=== PATIENT | male | born 1980 | race Two or more races ===

== ENCOUNTER 2023-09-16 21:26 | Emergency (ER) | payer MEDICAID, OTHER ==
[~2023-09-16] VITALS: Ht 172.7 cm; Wt 110.0 kg
[2023-09-16 23:14] VITALS: BP 131/87; PULSE 93; RESP 18; TEMP 98.8; O2SAT 95
[2023-09-16] MEDS: KETOROLAC TROMETH 60MG/2ML VIAL IM ONE (23:14)
== END 2023-09-17 00:06 | disposition home or self-care (01) ==
LOC: EDSEX 21:26 → EDBD 21:26 → ER 21:26
DX: S40.811A Abrasion of right upper arm, initial encounter (principal); S20.313A Abrasion of bilateral front wall of thorax, initial encounter; V89.2XXA Person injured in unspecified motor-vehicle accident, traffic, initial encounter; Y93.89 Activity, other specified; Y92.89 Other specified places as the place of occurrence of the external cause; Y99.8 Other external cause status
CPT/HCPCS: 71045; 96372; 99283; J1885

== ENCOUNTER 2024-08-28 10:29 | Emergency (ER) | payer MEDICAID ==
[~2024-08-28] VITALS: Ht 170.2 cm; Wt 114.8 kg
[2024-08-28 10:47] VITALS: TEMP 98.5
[2024-08-28 11:15] VITALS: PULSE 72; RESP 16; O2SAT 98
[2024-08-28] MEDS: ONDANSETRON HCL 4 MG/2 ML VIAL IV ONE (11:24)
[2024-08-28] MEDS: MORPHINE SULFATE 4 MG/ML SYR/VIAL IV ONE (11:25)
[2024-08-28] MEDS: cefTRIAXone 1GM/50ML D5W 50 ML IV ONE (11:25)
[2024-08-28] MEDS: SODIUM CHLORIDE 0.9% 1,000 ML IV ONE (11:26)
--- NOTE | 2024-08-28 11:27 | ED.PDOC ---
General HPI Comments 43 y.o male with PMHx of Nonalcoholic steatohepatitis, presents to the ED for a chief complaint of left lower quadrant pain radiating to his left flank and left lower back region associated with dysuria that started 3 days ago. Patient reports pain is mostly localized to his left lower back, has been constant and has no alleviating factors. Patient also mentions urine is very dark and has a foul odor. Patient denies any fever, chills, nausea, vomiting, diarrhea or hemaruria. Chief Complaint: Flank Pain Time Seen by MD: 11:06 Primary Care Provider: ROSALINA Zhu notes: Nurses Notes, Medications, Allergies Allergies: Coded Allergies: NO KNOWN ALLERGIES (Unverified , 09/16/23) Information Source: Patient Mode of Arrival: Ambulatory Severity: Moderate Inability to void: Moderate Timing: Days (3) Duration: Since onset Onset: Spontaneous Symptoms: Dysuria History of: None Location: Abdomen, (L)Flank Penile discharge: None Modifying factors: None associated signs and symptoms: Abdominal Pain, Flank Pain, Dysuria Past Medical History PAST MEDICAL HISTORY: Liver (Nonalcoholic steatohepatitis) Surgical History: Denies all surgeries Family History Family History: Unknown Social History Smoker: Non-Smoker Alcohol: Denies ETOH Use Drugs: Denies Drug Use Lives In: Home Constitutional: denies: chills, diaphoresis, fatigue, fever, malaise, sweats, weakness, others EENTM: denies: blurred vision, double vision, ear bleeding, ear discharge, ear drainage, ear pain, ear ringing, eye pain, eye redness, hearing loss, mouth pain, mouth swelling, nasal discharge, nose bleeding, nose congestion, nose pain, photophobia, tearing, throat pain, throat swelling, voice changes, others Respiratory: denies: cough, hemoptysis, orthopnea, SOB at rest, shortness of breath, SOB with excertion, stridor, wheezing, others Cardiovascular: denies: chest pain, dizzy spells, diaphoresis, Dyspnea on exertion, edema, irregular heart beat, left arm pain, lightheadedness, palpitati ons, PND, syncope, others Gastrointestinal: reports: abdominal pain; denies: abdomen distended, blood streaked bowels, constipated, diarrhea, dysphagia, difficulty swallowing, hematemesis, melena, nausea, poor appetite, poor fluid intake, rectal bleeding, rectal pain, vomiting, others Genitourinary: reports: dysuria, flank pain; denies: burning, frequency, hematuria, incontinence, penile discharge, penile sore, pain, testicle pain, testicle swelling, urgency, others Neurological: denies: dizziness, fainting, headache, left sided numbness, left sided weakness, numbness, paresthesia, pre-existing deficit, right sided numbness, right sided weakness, seizure, speech problems, tingling, tremors, weakness, others Musculoskeletal: reports: back pain; denies: gout, joint pain, joint swelling, muscle pain, muscle stiffness, neck pain, others Integumetry: denies: bruises, change in color, change in hair/nails, dryness, laceration, lesions, lumps, rash, wounds, others Allergic/Immunocompromised: denies: Difficulty Healing, Frequent Infections, Hives, Itching, others Hematologic/Lymphatic: denies: anemia, blood clots, easy bleeding, easy bruising, swollen glands, others Endocrine: denies: excessive hunger, excessive sweating, excessive thirst, excessive urination, flushing, intolerance to cold, intolerance to heat, unexplained weight gain, unexplained weight loss, others Psychiatric: denies: anxiety, bipolar disorder, depression, hopeless, panic disorder, schizophrenia, sleepless, suicidal, others All Other Systems: Reviewed and Negative Physical Exam General Appearance: No Apparent Distress, Obese HEENT: Other (Pupils and face symmetric. Moist mucous membranes.) Neck: Full Range of Motion, Normal Inspection Respiratory: Lungs Clear, No Accessory Muscle Use, No Respiratory Distress, Normal Breath Sounds Cardiovascular: No Edema, No JVD, Regular Rate/Rhythm Breast Exam: Deferred Gastrointestinal: LLQ, Soft, Tenderness Genitalia: Deferred Pelvic: Deferred Rectal: Deferred Extremities: Normal inspection, Normal range of motion, Non-tender, No pedal edema Neurologic: Alert (Oriented x4), Normal Affect, Normal Mood, Other (Ambulatory) Cerebellar Function: NOT DONE Reflexes: NOT DONE Skin: Dry, Normal Color, Warm Lymphatic: NOT DONE Was a procedure done? Was a procedure done?: No Differential Diagnosis Kidney stone (Female): N/A Kidney stone (Male): DJD, Pyelonephritis, Renal failure, Strain, Urolithiasis Urinary Problem (Male): Urolithiasis, UTI X-Ray, Labs, Meds, VS Vital Signs Date Time Temp Pulse Resp B/P (MAP) Pulse Ox O2 Delivery O2 Flow Rate FiO2 08/28/24 11:25 72 16 140/89 08/28/24 11:15 72 16 98 Room Air* 0 21 08/28/24 10:47 98.5 72 16 140/89 (106) 98 98.5 08/28/24 10:47 98.5 72 16 140/89 (106) 98 98.5 Lab Test 08/28/24 11:17 08/28/24 10:40 Range/Units White Blood Count 7.1 4.4-10.8 10^3/uL Red Blood Count 5.74 4.5-5.90 10^6/uL Hemoglobin 16.5 13.5-17.5 g/dL Hematocrit 48.7 41.0-53.0 % Mean Corpuscular Volume 84.9 80.0-100.0 fL Mean Corpuscular Hemoglobin 28.7 28.0-32.0 pg Mean Corpuscular Hemoglobin Concent 33.8 32.0-36.0 g/dL Red Cell Distribution Width 14.7 H 11.8-14.3 % Platelet Count 367 140-450 10^3/uL Mean Platelet Volume 8.3 6.9-10.8 fL Neutrophils (%) (Auto) 52.7 37.0-80.0 % Lymphocytes (%) (Auto) 30.0 10.0-50.0 % Monocytes (%) (Auto) 8.0 0.0-12.0 % Eosinophils (%) (Auto) 8.6 H 0.0-7.0 % Basophils (%) (Auto) 0.7 0.0-2.0 % Neutrophils # (Auto) 3.7 1.6-8.6 10 ^3/uL Lymphocytes # (Auto) 2.1 0.4-5.4 10 ^3/uL Monocytes # (Auto) 0.6 0-1.3 10 ^3/uL Eosinophils # (Auto) 0.6 0-0.8 10 ^3/uL Basophils # (Auto) 0 0-0.2 10 ^3/uL Nucleated Red Blood Cells 0.1 % Sodium Level 141 136-145 mmol/L Potassium Level 4.2 3.5-5.1 mmol/L Chloride Level 108 H 98-107 mmol/L Carbon Dioxide Level 24 20-31 mmol/L Anion Gap 9 5-15 Blood Urea Nitrogen 9 9-23 mg/dL Creatinine 1.00 0.700-1.30 mg/dL Glomerular Filtration Rate Calc 97 >90 mL/min BUN/Creatinine Ratio 9.0 L 10.0-20.0 Serum Glucose 87 74-106 mg/dL Calcium Level 10.2 8.7-10.4 mg/dL Total Bilirubin 0.7 0.2-1.0 mg/dL Aspartate Amino Transferase (AST) 39 13-40 U/L Alanine Aminotransferase (ALT) 69 H 7-40 U/L Alkaline Phosphatase 127 H 46-116 U/L Total Protein 8.3 H 5.7-8.2 g/dL Albumin 5.0 H 3.2-4.8 g/dL Urine Color Yellow Yellow Urine Clarity Clear Clear Urine pH 5.5 5.0-9.0 Urine Specific [place] 1.030 1.001-1.035 Urine Protein Trace H Negative Urine Ketones Negative Negative Urine Blood Negative Negative /uL Urine Nitrite Negative Negative Urine Bilirubin Negative Negative Urine Urobilinogen Normal Negative mg/dL Urine Leukocyte Esterase Negative Negative /uL Urine RBC 1 0 - 3 /hpf Urine Microscopic WBC 1 0-3 /HPF Urine Squamous Epithelial Cells None seen <5 /hpf Urine Bacteria None seen None Seen /hpf Urine Mucus Few None Seen Urine Glucose Normal Normal mg/dL Current Medications Medications (Trade) Dose Ordered Sig/Deanna Route Start Time Stop Time Status Last Admin Sodium Chloride 1,000 ml @ 1,000 mls/hr Q1H ONCE IV 08/28/24 11:15 08/28/24 12:14 DC 08/28/24 11:26 Morphine Sulfate 4 mg ONCE ONCE IV 08/28/24 11:15 08/28/24 11:16 DC 08/28/24 11:25 Ondansetron HCl (Zofran) 4 mg ONCE ONCE IV 08/28/24 11:15 08/28/24 11:16 DC 08/28/24 11:24 Ceftriaxone Sodium 50 ml @ 100 mls/hr ONCE ONCE IV 08/28/24 11:15 08/28/24 11:44 DC 08/28/24 11:[address] AB PEL WO CON-NO ORAL OR IV INDICATION: LLQ pain rad to L low back, dysuria EXAM DATE: 08/28/2024 11:27 AM COMPARISON: None RADIATION DOSE: CTDIvol: 26 mGy, DLP: 1347 mGy*cm PROCEDURE: Helical CT images were obtained of the abdomen and pelvis without IV contrast Sagittal and coronal reconstructions are provided. ORAL CONTRAST: None. ADDITIONAL IMAGES / REFORMATS: None All CT scans at this medical facility are performed using dose modulation techniques as appropriate to a performed exam including the following: Automated exposure control was utilized; adjustment of the MA and/or KV according to patient size; and use of iterative reconstruction technique. FINDINGS: LUNG BASE: Normal. LIVER: Hepatic steatosis. GALLBLADDER AND BILIARY TREE: No calcified gallstones. Normal caliber wall. No intra- or extrahepatic biliary ductal dilation. PANCREAS: Normal. SPLEEN: Normal. BOWEL: Normal. Normal appendix. ADRENALS: Normal. KIDNEYS AND URETER: Normal. BLADDER: Normal. REPRODUCTIVE ORGANS: Normal. LYMPH NODES:No lymphadenopathy. PERITONEUM: No ascites or free air. No other fluid collection. VESSELS: Scattered atherosclerotic calcifications are noted. RETROPERITONEUM: Normal. ABDOMINAL WALL: Normal. BONES: Scattered osseous degenerative changes are noted. IMPRESSION: No acute intraabdominal abnormality. Hepatic steatosis. X-Ray, Labs, Meds, VS Comment 43-year-old male with a history of MO complaining of left lower back pain, left lower quadrant pain and dysuria Vitals unremarkable Exam remarkable for left lower quadrant tenderness to palpation. No CVA tenderness. Rhythm strip independently interpreted by me: Sinus rhythm, rate 72, no ectopy. CT abdomen and pelvis unremarkable CBC remarkable, CMP remarkable for mildly elevated ALT, alkaline phos, total protein and albumin, UA unremarkable Patient treated with the following in the ED: 1 L 0.9 normal saline IV bolus, morphine 4 mg IV, Zofran 4 mg IV, Rocephin 1 g IV On re-evaluation, patient states pain has improved. Vitals were stable. Patient appears stable for discharge with close outpatient follow-up with primary physician. Since he has symptoms consistent with UTI, he will be presumptively treated with antibiotics. Rx Keflex, ibuprofen, Tylenol Time of 1ST Reevaluation: 11:16 Reevaluation 1ST: Unchanged Time of 2ND Reevaluation: 12:52 Reevaluation 2ND: Improved Patient Education/Counseling: Diagnosis, Treatment, Prognosis Family Education/Counseling: No Family Present Departure 1 Departure Time of Disposition: 13:00 Impression: Primary Impression: UTI (urinary tract infection) Qualified Codes: N39.0 - Urinary tract infection, site not specified Disposition: HOME / SELF CARE / HOMELESS Condition: Stable Additional Instructions: Your blood tests were unremarkable, urine test was unremarkable. Your symptoms are consistent with a urinary tract infection. Your CT scan was unremarkable. I have prescribed pain medication and antibiotics. Follow-up with your primary doctor in 1-2 days. Return to ER for persistent or worsening symptoms. e-Prescriptions Cephalexin Monohydrate (Cephalexin) 500 Mg Cap 1 CAP PO QID for 7 Days, #28 CAP Prov: IRIS DARBY MD 08/28/24 Ibuprofen Micronized (Ibuprofen) 800 Mg Tab 800 MG PO Q8HP PRN, #30 TAB Prov: IRIS DARBY MD 08/28/24 Acetaminophen (Tylenol Extra Strength) 500 Mg Tab 1000 MG PO Q6HP PRN, #30 TAB Prov: IRIS DARBY MD 08/28/24 Discharged With: Self Critical Care Note Critical Care Time?: No Stability Stability form required: No I personally scribed for IRIS DARBY MD ([email or web address]) on 08/28/24 at 11:27. Electronically submitted by Tami Rush ([facility]). I personally scribed for IRIS DARBY MD ([email or web address]) on 08/28/24 at 12:39. Electronically submitted by Tami Rush ([facility]). IRIS DARBY MD Aug 28, 2024 11:27
[2024-08-28 11:39] LABS: Basophils # (auto) 0 10 ^3/uL (0-0.2); Basophils % (auto) 0.7 % (0.0-2.0); Eosinophils # (auto) 0.6 10 ^3/uL (0-0.8); Eosinophils % (auto) 8.6 % (0.0-7.0); Hematocrit 48.7 % (41.0-53.0); Hemoglobin 16.5 g/dL (13.5-17.5); Lymphocytes # (auto) 2.1 10 ^3/uL (0.4-5.4); Mean Corpuscular Hemoglobin 28.7 pg (28.0-32.0); Mean Corpuscular Hgb Conc. 33.8 g/dL (32.0-36.0); Mean Corpuscular Volume 84.9 fL (80.0-100.0); Monocytes # (auto) 0.6 10 ^3/uL (0-1.3); Neutrophils # (auto) 3.7 10 ^3/uL (1.6-8.6); Neutrophils % (auto) 52.7 % (37.0-80.0); Nucleated Red Blood Cells % 0.1 %; Platelet Count (auto) 367 10^3/uL (140-450); Red Blood Cells 5.74 10^6/uL (4.5-5.90); Red Cell Distribution Width 14.7 % (11.8-14.3); White Blood Cell 7.1 10^3/uL (4.4-10.8)
[2024-08-28 11:58] LABS: Anion Gap 9 (5-15); Aspartate Aminotransferase 39 U/L (13-40); Bilirubin, Total 0.7 mg/dL (0.2-1.0); Calcium 10.2 mg/dL (8.7-10.4); Carbon Dioxide 24 mmol/L (20-31); Glucose 87 mg/dL (74-106); Potassium 4.2 mmol/L (3.5-5.1); Sodium 141 mmol/L (136-145)
[2024-08-28 12:03] LABS: Alanine Aminotransferase 69 U/L (7-40); Alkaline Phosphatase 127 U/L (46-116); Blood Urea Nitrogen 9 mg/dL (9-23); Chloride 108 mmol/L (98-107); Total Protein 8.3 g/dL (5.7-8.2)
--- NOTE | 2024-08-28 12:35 | DVH ---
CT CT AB PEL WO CON-NO ORAL OR IV INDICATION: LLQ pain rad to L low back, dysuria EXAM DATE: 08/28/2024 11:27 AM COMPARISON: None RADIATION DOSE: CTDIvol: 26 mGy, DLP: 1347 mGy*cm PROCEDURE: Helical CT images were obtained of the abdomen and pelvis without IV contrast Sagittal and coronal reconstructions are provided. ORAL CONTRAST: None. ADDITIONAL IMAGES / REFORMATS: None All C T scans at this medical facility are performed using dose modulation techniques as appropriate to a p erformed exam including the following: Automated exposure control was utilized; adjustment of the MA and/or KV according to patient size; and use of iterative reconstruction technique. FINDINGS: LUNG BASE: Normal. LIVER: Hepatic steatosis. GALLBLADDER AND BILIARY TREE: No calcified gallstones. Normal caliber wall. No intra- or extrahepatic biliary ductal dilation. PANCREAS: Normal. SPLEEN: Normal. BOWEL: Normal. Normal appendix. ADRENALS: Normal. KIDNEYS AND URETER: Normal. BLADDER: Normal. REPRODUCTIVE ORGANS: Normal. LYMPH NODES:No lymphadenopathy. PERITONEUM: No ascites or free air. No other fluid collection. VESSELS: Scattered atherosclerotic calcifications are noted. RETROPERITONEUM: Normal. ABDOMINAL WALL: Normal. BONES: Scattered osseous degenerative changes are noted. IMPRESSION: No acute intraabdominal abnormality. Hepatic steatosis.
[2024-08-28 12:41] LABS: Urine Bacteria None Seen /hpf (None Seen)
[2024-08-28 12:58] LABS: Urine Blood Negative /uL (Negative); Urine Clarity Clear (Clear); Urine Color Yellow (Yellow); Urine Mucus FEW (None Seen); Urine Protein, UAD TRACE (Negative); Urine Squamous Epithelial Cell None Seen /hpf (<5); Urine Urobilinogen Normal (Negative); Urine WBC 1 /HPF (0-3); Urine pH 5.5 (5.0-9.0)
[2024-08-28 13:05] VITALS: BP 124/90; PULSE 56; RESP 18; O2SAT 97
[2024-08-28] MEDS ORDERED: CEPH500C PO (13:08)
[2024-08-28] MEDS ORDERED: ACET-1304 PO (13:08)
[2024-08-28] MEDS ORDERED: IBUP-1455 PO (13:08)
== END 2024-08-28 13:24 | disposition home or self-care (01) ==
LOC: ER 10:29
DX: N39.0 Urinary tract infection, site not specified (principal)
CPT/HCPCS: 36415; 74176; 80053; 81001; 85025; 96365; 96375; 99285; J0696; J2270; J2405